=== PATIENT | female | born 1980 | race Caucasian/White ===

== ENCOUNTER → 2019-01-08 | Outpatient (CLI) | payer OTHER ==
[~2019-01-08] MED LIST: PRENATAL TABLE1 EAC1 PO
== END | disposition home or self-care (01) ==
LOC: NST 16:20
DX: Z34.83 Encounter for supervision of other normal pregnancy, third trimester (principal)

== ENCOUNTER 2019-01-21 12:49 | Outpatient (CLI) | payer OTHER | END 2019-01-21 14:06 | disposition home or self-care (01) | LOC: NST 12:49 | DX: Z34.83 Encounter for supervision of other normal pregnancy, third trimester (principal) ==

== ENCOUNTER 2019-01-26 14:45 | Inpatient (IN) | payer OTHER ==
[~2019-01-26] VITALS: Ht 167.6 cm; Wt 73.9 kg
[2019-02-09] MEDS ORDERED: PRENATAL TABLE1 EAC1 PO (03:33)
== END 2019-02-11 14:17 | disposition home or self-care (01) | DRG 788 ==
LOC: O/R 14:45 → OB/GYN 02-09 01:08 → LDR 02-09 01:08 → O/R 02-09 13:40 → OB/GYN 02-09 15:51
PROVIDERS: ADMIT Obstetrics & Gynecology
PROC: 4A033R1 Measurement of Arterial Saturation, Peripheral, Percutaneous Approach (ICD-10-PCS; 2019-02-09)
PROC: 4A1HXCZ Monitoring of Products of Conception, Cardiac Rate, External Approach (ICD-10-PCS; 2019-02-09)
PROC: 10D00Z1 Extraction of Products of Conception, Low, Open Approach (ICD-10-PCS; principal; 2019-02-09 13:45)
DX: O76 Abnormality in fetal heart rate and rhythm complicating labor and delivery (principal); Z3A.39 39 weeks gestation of pregnancy; Z37.0 Single live birth

== ENCOUNTER 2019-02-05 13:17 | Outpatient (CLI) | payer OTHER | END 2019-02-05 15:03 | disposition home or self-care (01) | LOC: NST 13:17 | DX: Z34.83 Encounter for supervision of other normal pregnancy, third trimester (principal) ==